=== PATIENT | male | born 1990 | race Caucasian/White ===

== ENCOUNTER 2017-05-02 05:52 | Day surgery (SDC) | payer OTHER ==
[2017-05-02] MEDS ORDERED: SUGAMMADEX SODIUM 200 MG/2 ML VIAL IV (07:00)
[2017-05-02] MEDS ORDERED: FENTAnyl 50 MCG/ML VIAL ×2 (07:00→07:33)
[2017-05-02] MEDS ORDERED: BUPIVACAINE 0.5% (SDV) 30 ML INJ (07:02)
[2017-05-02] MEDS ORDERED: GLYCOPYRROLATE 0.4 MG INJ (07:32)
[2017-05-02] MEDS ORDERED: ROCURONIUM 50 MG INJ (07:32)
[2017-05-02] MEDS ORDERED: NEOSTIGMINE 3 MG/3 ML SYRINGE (07:32)
[2017-05-02] MEDS ORDERED: PROPOFOL 20 ML (07:32)
[2017-05-02] MEDS ORDERED: CEFAZOLIN 1 GM INJ (07:32)
[2017-05-02] MEDS ORDERED: ONDANSETRON 4 MG INJ (07:33)
[2017-05-02] MEDS ORDERED: MIDAZOLAM 1 MG/ML 2 ML INJ (07:33)
[2017-05-02] MEDS ORDERED: DEXAMETHASONE 4 MG/ML 1 ML INJ (07:33)
[2017-05-02] MEDS ORDERED: ROPIVACAINE 0.5 % 30 ML VIAL ×2 (07:34→07:37)
[2017-05-02] MEDS ORDERED: SODIUM CL BACTERIOSTATIC 30 ML INJ (07:58)
[2017-05-02] MEDS ORDERED: morphine 2 MG INJ IV (08:00)
[2017-05-02] MEDS ORDERED: hydrALAzine 20 MG INJ IV (09:00)
[2017-05-02] MEDS ORDERED: DIPHENHYDRAMINE 50 MG INJ IV (09:00)
[2017-05-02] MEDS ORDERED: ALBUTEROL 0.083% (NEB) 2.5 MG/3 ML AMP HHN (09:00)
[2017-05-02] MEDS ORDERED: FENTAnyl 50 MCG/ML VIAL IV ×2 (09:00)
[2017-05-02] MEDS ORDERED: TRIMETHOBENZAMIDE 100 MG/ML VIAL IM (09:00)
[2017-05-02] MEDS ORDERED: HYDROmorphONE (0.2 MG/ML) 10ML SYG IV ×3 (09:00)
[2017-05-02] MEDS ORDERED: IPRATROPIUM (NEB) 0.5 MG/2.5 ML AMP HHN (09:00)
[2017-05-02] MEDS ORDERED: OXYCODONE/ACETAMINOPHEN (5/325) TAB PO ×2 (09:00)
[2017-05-02] MEDS ORDERED: EPHEDrine SULFATE 50 MG/5 ML SYG IV (09:00)
[2017-05-02] MEDS ORDERED: LABETALOL HCL 20MG INJ IV (09:00)
[2017-05-02] MEDS ORDERED: ONDANSETRON 4 MG INJ IV (09:00)
[2017-05-02] MEDS ORDERED: MIDAZOLAM 1 MG/ML 2 ML INJ IV (09:00)
[2017-05-02] MEDS ORDERED: MEPERIDINE 25 MG INJ IV (09:00)
[2017-05-02] MEDS: POLYMYXIN/BACITRACIN 1L IRRIG IRR (09:21)
[2017-05-02] MEDS: ROPIVACAINE 0.5 % 30 ML VIAL (09:21)
[2017-05-02] MEDS: NEOMYC/POLYMYX/BACIT 30 GM OINT (11:01)
[2017-05-02] MEDS: CA CHLORIDE 10% 10 ML SYRINGE (11:01)
[2017-05-02] MEDS: THROMBIN 5000 UNIT VIAL (11:01)
[2017-05-02] MEDS: HEPARIN 1000 UNITS/ML 10 ML INJ (11:15)
[2017-05-02] MEDS: FENTAnyl 50 MCG/ML VIAL IV ×2 (11:58→12:11)
== END 2017-05-02 13:31 | disposition home or self-care (01) ==
LOC: SDS 05:52
DX: M65.871 Other synovitis and tenosynovitis, right ankle and foot (principal); S93.421A Sprain of deltoid ligament of right ankle, initial encounter; X58.XXXA Exposure to other specified factors, initial encounter
CPT/HCPCS: 27695; 73610-RT; 82306